=== PATIENT | male | born 1940 | race Caucasian/White ===

== ENCOUNTER 2020-01-28 09:13 | Inpatient (IN) | payer MEDICARE, OTHER, SELFPAY ==
[2020-01-28] VITALS (40 sets, daily range): BP systolic 119–190; BP diastolic 71–165; PULSE 80–173; RESP 14–34; TEMP 36.6–37.4; O2SAT 95–99
--- NOTE | 2020-01-28 09:00 | RT.EKG_ITS ---
APPROVED REPORT Exam: Resting ECG Patient Location: E HR:122 bpm ECG Measurements Heart Rate 122 AXIS HI 152 P 60 QRSd 92 QRS 77 QT 332 T -21 QTc 475 Conclusion Sinus tachycardia with irregular rate...V-rate 101-153, variation>10%
--- NOTE | 2020-01-28 09:30 | DI.CT_ITS ---
EXAM: CT HEAD CERVICAL SPINE WO CLINICAL HISTORY: unwitnessed fall TECHNIQUE: COMPARISON: CT CT CHEST/ABD/PEL W from 01/28/2020 FINDINGS: Noncontrast cranial CT was performed. Moderate generalized cerebral atrophy noted. Diffuse white ma tter decreased attenuation noted consistent with microvascular ischemic change. Right lacunar infarc t noted. No evidence of acute intracranial hemorrhage, mass effect, or midline shift. The orbital and tempora l bone structures appear intact. Visualized mastoid air cells and paranasal sinuses are clear. Noncontrast cervical spine CT was performed. There are moderate degenerative changes of the facet julio cesar ints and endplates. No evidence of acute cervical spine fracture or dislocation. Visualized lung apices are clear. Tracheolaryngeal structures appear intact. IMPRESSION: No evidence of acute intracranial injury. No evidence of acute cervical spine injury. RADIATION DOSE DELIVERED: 1,352.08mGy.cm Total DLP
--- NOTE | 2020-01-28 09:43 | W.ED.GENAD ---
Discharge Plan Disposition Patient Disposition: [facility] IN[facility]IENT Condition: Poor Discharge Details Chief Complaint: Trauma Clinical Impression: Dementia, Fall, Palliative care patient Admit Date/Time: 01/28/20 12:47 Admit Provider: Charlie Guerrero Attending Provider: Charlie Guerrero Primary Care Provider: LesleeLocal ED Provider: Elise Snyder Discharge Data Discharge Date/Time-TO BE ENTERED AT DEPARTURE: 01/28/20 13:37 Medical Decision Making Patient is a confused 79-year-old male brought in via EMS after fall and subsequent seizure like episode. The fall was unwitnessed but does describe the subsequent episode that was 5 to 10 minutes after the initial fall. Shows the patient arching his back and convulsing there is a 62-year-old on pain prior to this. Per EMS, the patient had been fairly unresponsive but seem to clear since their time with the patient. Patient has been endorsing some discomfort in the right lower quadrant. He is not anticoagulated. Patient is unable to give me any past medical history secondary to his Alzheimer's. His exam is concerning for a small skin tear of the left elbow as well as the upper left back. He is moving the arm without any difficulty. Patient is collared. No evidence of head trauma. Lungs are clear. No evidence of respiratory distress. Abdomen significant for some right lower quadrant pain. No peritoneal findings. Pelvis is stable. Unable to perform neurologic exam secondary to patient's mental state. As I am unable to obtain accurate history, will move forward [facility] imaging. Patient given IV Ativan to help allow for imaging without large amount of movement. did give consent for medication. FINDINGS: Brain: Moderate degree deep cortical atrophy. There is mild periventricular low-attenuation consistent with small vessel ischemic change. Cerebral ventricles: There is compensatory enlargement the ventricular system due to atrophy. Bones/joints: Unremarkable. No acute fracture. Paranasal sinuses: Visualized sinuses are unremarkable. No fluid levels. Mastoid air cells: Visualized mastoid air cells are well aerated. Soft tissues: Unremarkable. Other findings: Images are degraded by motion artifact. IMPRESSION: No evidence of acute intracranial injury. FINDINGS: Lungs: Unremarkable. No consolidation. No masses. Pleural space: Unremarkable. No pneumothorax. No pleural effusion. Heart: There is calcification of the coronary arteries. The heart is not enlarged. Aorta: Calcifications are present in the aorta but there is no evidence of thoracic aortic aneurysm. Lymph nodes: Unremarkable. No enlarged lymph nodes. Liver: Incidentally noted are multiple calcified stones in the gallbladder and multiple benign liver cysts. Bones/joints: Degenerative changes are present in the spine with sclerosis and osteophyte formation. No fractures are seen in the chest. Soft tissues: Unremarkable. IMPRESSION: He has no acute abnormalities are seen in the chest. Labs reviewed. No leukocytosis. Stable H&H. Potassium slightly low at 3.4. Labs otherwise significant abnormality. Troponin is less than 0.05. CK is within normal limits. Patient does have a mild amount of blood in the urine but this was straight cathed and strep and traumatic. Spoke with the at length regarding goals of care. Patient continues to be tachycardic. He does have fluids running. Patient does have advanced directives on file. reports that he has been declining fairly rapidly in recent months. She reports that they were supposed to go to [place] in the next few months which is unclear if there can be able to do so. At this point, she is recognizing she is going to need help at home as he is falling more frequently and is increasingly confused. He has had significant weight loss as he is even having difficulty identifying food needs a large amount of prompting to continue to have caloric or fluid intake. Care management evaluated the patient. I do feel that they would benefit from palliative care consult. Patient is very agitated and has fairly spastic movements. I am concerned about his and his safety if he is to be discharged home. Will consult hospitalist regarding inpatient admission with plan for evaluation and discussion with palliative care while here. Consulted with hospitalist who agrees to admission. HPI General Mode of arrival: EMS. Date/Time Provider Initiated Documentation: 01/28/20 09:30. Limitations to Documentation: altered mental status (alzheimers, at baseline per family). Information obtained by: family (), EMS and RN notes reviewed. HPI Narrative: Patient is a 79-year-old male with advanced Alzheimer's, brought in via EMS after concern for seizure. Patient's is at bedside. She reports that this morning the patient suffered an unwitnessed fall. She reports the patient does fall fairly frequently. She states that initially, he had been endorsing some pain on his buttock and had an abrasion to the left elbow which she bandaged. She states that this seems to be fairly baseline fall initially but approximately 5 to 10 minutes after the initial fall she heard the patient yell out to find him on the floor once again unconscious, with back arched and convulsing. She reports that he was then unresponsive for approximately half an hour after this. He is currently back to his baseline. She is did not believe that he struck his head. Related Data Home Medications Medication Instructions Recorded Confirmed donepezil [Aricept] 5 mg PO QHS 01/28/20 01/28/20 memantine [Namenda] 10 mg PO QPM 01/28/20 01/28/20 Allergies Allergy/AdvReac Type Severity Reaction Status Date / Time No Known Allergies Allergy Unverified 01/28/20 09:44 General Stated Complaint: Trauma MURRAY: 2 Review of Systems Unobtainable due to mental status [facility] Medical History HTN (hypertension) Hyperlipidemia Social History Smoking/Tobacco Use Status: Former Tobacco Use Alcohol Intake: never Drug use: Never Substance use type: does not use Do you feel safe at home: Yes Do you feel safe in your relationship?: Yes Exam Const General: uncooperative, in distress mild, anxious and ill appearing chronically Nutritional Appearance: average body habitus and well nourished Orientation: alert, awake, oriented to person (able to state his first name only), not oriented to place, not oriented to time and confused [facility] Head: normal to inspection, no palpable skull fracture, normocephalic and atraumatic Ears: hearing grossly normal bilaterally, external ears normal and TM's normal bilaterally General nose exam: external nose normal Mouth: oral mucosae normal, lip normal and tongue normal Throat: other (unable to evaluate, patient does not want to open mouth) Eyes General: appearance normal, both eyes and all related structures Alignment and Position: alignment normal Periorbital: periorbital findings normal Eyelids: eyelids normal Conjunctivae: conjunctivae normal Pupils: PERRL EOM: EOM intact bilaterally Neck Neck: normal visual inspection, no lymphadenopathy, trachea midline and supple Chest Chest: normal inspection of the chest, normal palpation of entire chest wall, no crepitus and no localized rib tenderness Resp Effort & Inspection: normal respiratory effort, able to speak in complete sentences and no respiratory distress Auscultation: clear to auscultation bilaterally, no rales, no rhonchi and no wheezes Cardio Rate: regular rate Rhythm: regular rhythm Heart Sounds: S1 normal and S2 normal GI Inspection: normal to inspection, no abdominal wall ecchymosis, no edema and non-distended Palpation: soft, no hepatosplenomegaly, not firm, no guarding, no pulsatile masses, not rigid and tender in the RLQ; with no rebound tenderness Auscultation: normal bowel sounds Back/Spine/Pelvis Back: no CVA tenderness Cervical Spine: normal cervical lordosis and cervical ROM normal Thoracic/Lumbar Spine: thoracic and lumbar spine normal to inspection, thoraco-lumbar ROM normal, No thoraco-lumbar ROM limited, No thoraco-lumbar spasm and No thoracic spinal tenderness Pelvis: no pain with anterior-posterior compression and no pain with lateral compression Skin Trauma: abrasion (left elbow and upper left back) Neuro General: patient alert, patient awake, not oriented x3, gait abnormal (not assessed), tone normal and moves all extremities Cranial Nerves: PERRL, EOM intact bilaterally, facial strength normal, able to rotate head bilaterally and able to elevate shoulders bilaterally Cognition: abnormal cognition Speech: speech normal (reported to be baseline for patient) Motor: muscle tone normal throughout Sensory Exam: no sensory deficits noted (unable to assess secondeary to cognition) Extrem General: normal to inspection, full ROM, capillary refill normal, no pedal edema and no calf tenderness Psych Appearance: grossly normal Course Vital Signs Vital signs: Vital Signs Temperature 36.6 C 01/28/20 09:17 Pulse 126 H 01/28/20 09:17 Respiratory Rate 34 H 01/28/20 09:17 Blood Pressure 146/94 H 01/28/20 09:17 Pulse Oximetry 98 01/28/20 09:17 Temperature 36.6 C 01/28/20 09:17 Temperature Source Temporal Artery Scan 01/28/20 09:17 Pulse 126 H 01/28/20 09:17 Respiratory Rate 34 H 01/28/20 09:17 Blood Pressure 146/94 H 01/28/20 09:17 Blood Pressure Position Supine 01/28/20 09:17 Pulse Oximetry 98 01/28/20 09:17 Oxygen Delivery Method Room Air 01/28/20 09:17 Oxygen Flow Rate 0 01/28/20 09:17
[2020-01-28] MEDS: LORazepam 2 MG/ML VIAL 0.5 MG IVP (09:45)
[2020-01-28] MEDS: Normal Saline Flush 10 ML SYR IVP (09:45)
[2020-01-28 09:56] LABS: Bilirubin Negative (Negative); Blood Moderate (Negative); Clarity Clear (Clear); Glucose Negative (Negative); Ketones Negative (Negative); Leukocyte Esterase Negative (Negative); Nitrite Negative (Negative); Specific Gravity 1.025 (1.005-1.025); Urobilinogen 0.2 EU/dL (Up TO 0.2)
[2020-01-28 09:57] LABS: Abs Immature Grans 0.02 10^3/uL (0.0-0.06); Absolute Basophil Count 0.04 10^3/uL (0.0-0.2); Absolute Eosinophil Count 0.21 10^3/uL (0.0-0.7); Absolute Lymphocyte Count 1.39 10^3/uL (1.2-3.4); Absolute Monocyte Count 0.46 10^3/uL (0.1-0.8); Absolute Neutrophil Count 4.27 10^3/uL (1.2-6.7); Basophils % 0.6; Eosinophils % 3.3; HCT 43.1 % (40.0-50.0); HGB 14.2 g/dL (13.5-17.5); Immature Grans % 0.3; Lymphocytes % 21.8; MCH 30.7 pg (27.0-33.0); MCHC 32.9 % (32.0-36.0); MCV 93.3 fL (80-95); MPV 10.4 fL (8.0-11.0); Monocytes % 7.2; Neutrophils % 66.8; Nucleated RBC 0 %; Platelet Count 214 10^3/uL (130-400); RBC 4.62 10^6/uL (4.36-5.78); RDW 12.3 % (11.8-14.1); RDW-SD 42.4 fL; WBC 6.39 10^3/uL (4.4-10.8)
[2020-01-28] MEDS: LORazepam 2 MG/ML VIAL 1 MG IVP (10:00)
[2020-01-28 10:08] LABS: Bacteria Moderate HPF (Negative); C & S Indicated? No; Casts Negative LPF (Negative); Crystals Negative HPF (Negative); Epithelial Cells Negative HPF (Negative); Mucus Negative (Negative); Other Cells Few Renal (Negative); RBC >50 HPF (0-2)
[2020-01-28 10:11] LABS: PTT Activated 23.2 sec (21.0-31.4); Prothrombin Time 10.2 sec (9.3-11.0)
[2020-01-28 10:13] LABS: ALT 22 U/L (16-63); AST 17 U/L (15-37); Albumin 3.7 g/dL (3.4-5.0); Alkaline Phosphatase 84 U/L (46-116); Anion Gap 8.7 mmol/L (3-11); BUN 18 mg/dL (7-18); Bilirubin, Total 0.4 mg/dL (0.2-1.0); CO2 26.3 mmol/L (21.0-32.0); CREATININE 0.95 mg/dL (0.70-1.30); Calcium 8.8 mg/dL (8.5-10.1); Chloride 107 mmol/L (98-107); Glucose 122 mg/dL (74-106); Magnesium 2.3 mg/dL (1.8-2.4); Potassium 3.4 mmol/L (3.5-5.1); Sodium 142 mmol/L (136-145); Total Protein 7.7 g/dL (6.4-8.2); Troponin I < 0.05 ng/mL (<0.06)
[2020-01-28] MEDS: Normal Saline - Diluent 50 ML VIAL IV (10:25)
[2020-01-28] MEDS: Omnipaque 350 MG/ML 100 ML BTL IJ (10:25)
--- NOTE | 2020-01-28 10:50 | DI.CT_ITS ---
EXAM: CT CHEST/ABD/PEL W TECHNIQUE: CT examination of the chest, abdomen, and pelvis was performed with bolus infusion of 100 cc of Omnipaque 350. COMPARISON: No exams were available for comparison FINDINGS: There is no evidence of a thoracic vascular injury. The lungs are clear. No pneumothorax or pleural effusion. No mediastinal hematoma. No adenopathy in the chest. Tracheobronchial tree appears intact. The liver, spleen, and pancreas appear normal. Note note is made of cholelithiasis. No biliary dila tation. Adrenals and kidneys are unremarkable. No evidence of urinary tract injury or obstruction. No abdominal or pelvic vascular injury seen. Incidental hepatic cysts noted. No abdominal or pelvic adenopathy. No significant abdominal wall hernia or hematoma. No evidence of bowel injury. No fracture identified in the region surveyed. IMPRESSION: No evidence of acute injury of the chest, abdomen, or pelvis. RADIATION DOSE DELIVERED: Total DLP Total DLP DATA REPOSITORY: All CT scans at this facility are submitted to the National Radiology Data Registry (NRDR) Dose Index Registry (DIR) with the [employer] (ACR). RADIATION OPTIMIZATION: All CT scans at this facility use at least one of these dose optimization te chniques: automated exposure control; mA and/or kV adjustment per patient size (includes targeted exa ms where dose is matched to clinical indication); or iterative reconstruction.
[2020-01-28] MEDS: Normal Saline 1,000 ML 150 ML IV ×2 (10:54→20:27)
--- NOTE | 2020-01-28 11:24 | DI.VRAD_ITS ---
PROCEDURE INFORMATION: Exam: CT Abdomen And Pelvis With Contrast Exam date and time: 01/28/2020 9:49 AM Age: 79 years old Clinical indication: Injury or trauma; Fall; Generalized; Blunt trauma (contusions or hematomas); Injury date: 01/28/20 TECHNIQUE: Imaging protocol: Computed tomography of the abdomen and pelvis with intravenous contrast. Radiation optimization: All CT scans at this facility use at least one of these dose optimization techniques: automated exposure control; mA and/or kV adjustment per patient size (includes targeted exams where dose is matched to clinical indication); or iterative reconstruction. Contrast material: OMNIPAQUE 350; Contrast volume: 100 ml; Contrast route: INTRAVENOUS (IV); COMPARISON: No relevant prior studies available. FINDINGS: Liver: Multiple benign liver cysts are present measuring up to 3.8 cm in diameter. Gallbladder and bile ducts: Multiple stones are present in the gallbladder. There is no pericholecystic fluid. The bile ducts are normal. Pancreas: Normal. No ductal dilation. Spleen: Normal. No splenomegaly. Adrenals: Normal. No mass. Kidneys and ureters: Normal. No hydronephrosis. Stomach and bowel: There is sigmoid diverticulosis but no evidence of acute diverticulitis. There is no bowel obstruction or dilatation. Appendix: No evidence of appendicitis. Intraperitoneal space: Unremarkable. No free air. No significant fluid collection. Vasculature: There is calcification and atherosclerotic plaquing in the aorta there is no significant aneurysmal dilatation. Lymph nodes: Unremarkable. No enlarged lymph nodes. Urinary bladder: Unremarkable as visualized. Reproductive: Prostate is enlarged with calcifications. Bones/joints: Chronic degenerative changes are present in the lumbar spine and in the hip joints. No fractures are seen in the abdomen and pelvis. Soft tissues: Unremarkable. IMPRESSION: 1. No acute abnormality. 2. Cholelithiasis. Dictated and Authenticated by: Mikhail Pimentel MD. Ordering:SHARMAINE Olivares MD
--- NOTE | 2020-01-28 11:37 | DI.VRAD_ITS ---
PROCEDURE INFORMATION: Exam: CT Cervical Spine Without Contrast Exam date and time: 01/28/2020 9:49 AM Age: 79 years old Clinical indication: Injury or trauma; Fall; Blunt trauma (contusions or hematomas); Consciousness not specified; Injury date: 01/28/20 TECHNIQUE: Imaging protocol: Computed tomography images of the cervical spine without contrast. Radiation optimization: All CT scans at this facility use at least one of these dose optimization techniques: automated exposure control; mA and/or kV adjustment per patient size (includes targeted exams where dose is matched to clinical indication); or iterative reconstruction. COMPARISON: No relevant prior studies available. FINDINGS: Limitations: Motion of degrading the images. Vertebrae: Congenital nonfusion of the posterior arch of C1. C2-C3 prominent anterior osteophyte formation C2-C3: No significant disc protrusion. No severe spinal canal stenosis. No significant neural foraminal narrowing. C3-C4: C3-C4 posterior osteophyte formation. There is foraminal narrowing inferiorly on the due to uncovertebral osteophyte formation and hypertrophic changes C4-C5: C4-C5 posterior osteophyte extending into the canal. There is bilateral uncovertebral osteophyte formation with mild inferior neural foraminal narrowing. C5-C6: There is disc Space narrowing with prominent anterior posterior osteophyte formation. There is exuberant uncovertebral hypertrophic changes resulting in bilateral inferior neural foraminal narrowing. C6-C7: C6-C7 degenerative changes marked uncovertebral hypertrophic changes anterior posterior osteophyte formation resulting in bilateral inferior neural foraminal narrowing. C7-T1: No significant disc protrusion. No severe spinal canal stenosis. No significant neural foraminal narrowing. Other bones/joints: Osteopenia. Soft tissues: Unremarkable. Lungs: Lung apices are normal. IMPRESSION: Marked degenerative changes with neural foraminal narrowing as described above. No evidence of acute fracture. Dictated and Authenticated by: Chandni Ramachandran MD. Ordering:SHARMAINE Olivares MD
[2020-01-28 11:42] LABS: Creatine Kinase 239 U/L (39-308)
[2020-01-28] MEDS: Lidocaine 2% Jelly 6 ML SYR (13:23)
--- NOTE | 2020-01-28 14:06 | HPE_ITS ---
Date of service: 01/28/20 Time of Service: 14:06 Assessment and Plan Assessment and plan (1) Dementia: Start date: 01/28/20 Start time: 14:17 Status: Chronic Assessment and plan: Dementia x 10 years, seen by provider in [place]. Progressively worse over last 3-6 months with aggression, agitation and falling. wants conservative measures while waiting for palliative care Will trial seroquel, Morphine for pain ativan for agitation Bowel medication for constipation Qualifiers: Dementia type: Alzheimer's disease Alzheimer's disease onset: early- onset Dementia behavioral disturbance: with behavioral disturbance Qualified Code(s): G30.0 - Alzheimer's disease with early onset; F02.81 - Dementia in other diseases classified elsewhere with behavioral disturbance (2) Fall: Start date: 01/28/20 Start time: 14:19 Status: Acute Assessment and plan: Fall this morning, unwitnessed, when found patient he was unresponsive. When he came through he was baseline with agitation, pain to LLQ, small abrasion to left upper scapula. Hold DVT prophylaxis due to agitation and high fall risk, As above Above case discussed with Dr. Guerrero who is agreeable. Qualifiers: Encounter type: initial encounter Qualified Code(s): W19.XXXA - Unspecified fall, initial encounter History of Present Illness History of Present Illness Chief Complaint: Dementia, agitation, fall Narrative: 79 y.o male with Dementia x past 10 years presents to [facility] ED after sustaining a fall, becoming unresponsive for approx 30 mins. Labs in the ED unremarkable except potassium 3.4, did not want further testing or procedures she wants conservative measures with palliative consult. Per over the summer he has gotten progressively more agitated, wt loss of about 50 pounds, decrease in po intake. He is confused and wants to get up and pee when being evaluated. He is being admitted to m/s for IV hydration, he is crying out and grimacing when pushing on LLQ, IV hydration ordered, morphine for pain, ativan for agitation, will trial seroquel for night time agitation and palliative has been consulted. He will need a sitter, he likes to get up on his own and is not steady. Review of Systems All systems reviewed & are unremarkable except as noted in HPI and below [facility] Medical History (Updated 01/28/20 @ 14:17 by Mishel Reyez NP) HTN (hypertension) Hyperlipidemia Social History Smoking/Tobacco Use Status: Former Tobacco Use Alcohol Intake: never Drug use: Never Substance use type: does not use Do you feel safe at home: Yes Do you feel safe in your relationship?: Yes Meds Home Medications and Allergies Home Medications Medication Instructions Recorded Confirmed Type donepezil [Aricept] 5 mg PO QHS 01/28/20 01/28/20 History memantine [Namenda] 10 mg PO QPM 01/28/20 01/28/20 History Allergies Allergy/AdvReac Type Severity Reaction Status Date / Time No Known Allergies Allergy Unverified 01/28/20 09:44 Exam Narrative Exam Narrative: Elderly confused male, fixated on urinating. Does not follow commands, rigid and still when trying to sit up. No edema. LSC, RRR no ectopic beats. Dry scaly skin, pain to LLQ with palpation, BS hypoactive. no edema, clubbing or cyanosis to bilateral lower extremities. Results Labs Result diagrams: 01/28/20 09:20 01/28/20 09:20 Labs: Laboratory Results - last 24 hr 01/28/20 01/28/20 01/28/20 09:20 09:20 09:20 WBC 6.39 RBC 4.62 Hgb 14.2 Hct 43.1 MCV 93.3 MCH 30.7 MCHC 32.9 RDW 12.3 Plt Count 214 MPV 10.4 Immature Gran % 0.3 Neutrophils % 66.8 Lymphocytes % 21.8 Monocytes % 7.2 Eosinophils % 3.3 Basophils % 0.6 Nucleated RBC % 0 Absolute Neutrophils 4.27 Absolute Lymphocytes 1.39 Absolute Monocytes 0.46 Absolute Eosinophils 0.21 Absolute Basophils 0.04 PT 10.2 INR 1.0 APTT 23.2 Sodium 142 Potassium 3.4 L Chloride 107 Carbon Dioxide 26.3 Anion Gap 8.7 BUN 18 Creatinine 0.95 Estimated GFR/1.73 m2 >= 60.00 Glucose 122 H Calcium 8.8 Magnesium 2.3 Total Bilirubin 0.4 AST 17 ALT 22 Alkaline Phosphatase 84 Creatine Kinase Troponin I < 0.05 Total Protein 7.7 Albumin 3.7 Urine Color Urine Clarity Urine pH Ur Specific [place] Urine Protein Urine Ketones Urine Blood Urine Nitrite Urine Bilirubin Urine Urobilinogen Ur Leukocyte Esterase Urine RBC Urine WBC Ur Epithelial Cells Urine Crystals Urine Bacteria Urine Casts Urine Mucus Urine Other Ur Culture Indicated? Urine Glucose 01/28/20 01/28/20 09:20 09:50 WBC RBC Hgb Hct MCV MCH MCHC RDW Plt Count MPV Immature Gran % Neutrophils % Lymphocytes % Monocytes % Eosinophils % Basophils % Nucleated RBC % Absolute Neutrophils Absolute Lymphocytes Absolute Monocytes Absolute Eosinophils Absolute Basophils PT INR APTT Sodium Potassium Chloride Carbon Dioxide Anion Gap BUN Creatinine Estimated GFR/1.73 m2 Glucose Calcium Magnesium Total Bilirubin AST ALT Alkaline Phosphatase Creatine Kinase 239 Troponin I Total Protein Albumin Urine Color Yellow Urine Clarity Clear Urine pH 7.0 Ur Specific [place] 1.025 Urine Protein Negative Urine Ketones Negative Urine Blood Moderate H Urine Nitrite Negative Urine Bilirubin Negative Urine Urobilinogen 0.2 Ur Leukocyte Esterase Negative Urine RBC >50 H Urine WBC 3-5 Ur Epithelial Cells Negative Urine Crystals Negative Urine Bacteria Moderate Urine Casts Negative Urine Mucus Negative Urine Other Few renal Ur Culture Indicated? No Urine Glucose Negative Last Vital Signs Temp 36.6 C 01/28/20 09:17 Pulse 117 H 01/28/20 13:01 Resp 24 01/28/20 13:30 BP 130/104 H 01/28/20 13:16 Pulse Ox 98 01/28/20 13:30 COVID-19 Screening Have you,or household,traveled outside [place] in last 14 days?: No Had IN PERSON contact w/suspected or confirmed C-19 person: No
[2020-01-28] MEDS: MORPHine 2 MG/ML SYR IVP (14:21)
[2020-01-28] MEDS: Bisacodyl 10 MG SUPP PR (14:22)
--- NOTE | 2020-01-28 15:34 | INITIAL_ITS ---
- If Service Date Differs Date of service: 01/28/20 Time of Service: 15:34 Care Management Initial Assess REASON FOR HOSPITALIZATION:: Dementia, agitation, fall PAST MEDICAL HISTORY/PAST SURGICAL HISTORY:: Medical History: Dementia, fall at home, HTN, Hyperlipidemia PREVIOUS FUNCTIONAL STATUS/SOCIAL/FAMILY SUPPORTS:: Steffen lives in [place] with his , Adrianna. They spend half of the year in [place], near [place]. Adrianna's family lives in [place], nearby. They have been for 37 years. Steffen has advanced dementia, and Adrianna is his sole caregiver. He is dependent on her for his ADL's. CURRENT FUNCTIONAL STATUS:: Steffen was in bed, moving his arms and legs around eratically during the conversation between CM and his , Adrianna. Steffen was unable to communicate due to his dementia. Adrianna stated that they are planning to return to [place], where they have more support and where Steffen's primary MD is located. She reported that she understands that Steffen's dementia is worsening, and she is ready to consider Hospice. CM explained that if he is admitted to Hospice in [place], it can be transferred to [place] when they are ready to return. A Palliative consult was placed. CM will continue to follow. ADVANCE DIRECTIVES:: On file, Adrianna listed as agent. Has patient been provided with info about the portal/API?: No Did the patient sign up for the portal?: No CODE STATUS:: DNR/DNI INSURANCE COVERAGE / FINANCIAL ISSUES:: MCR/ for life CURRENT HOME/COMMUNITY SERVICES/EQUIPMENT:: No current services at this time. PRIMARY CARE PHYSICIAN:: No local PCP POTENTIAL DISCHARGE NEEDS:: Palliative care vs Hospice admission, potential equipment needs. PATIENT/FAMILY EDUCATION NEEDS:: Review discharge instructions, discuss expectations of hospice care including goals of care. ANTICIPATED BARRIERS TO DISCHARGE:: None identified at this time. TRANSPORTATION:: via private vehicle by his PLAN:: Steffen and his , Adrianna will meet with Palliative care/Hospice to determine goals of care and to help with discharge planning. CM will support Steffen and his family, and will help with coordination in order to transition home smoothly. CM will continue to follow.
[2020-01-28] MEDS: Memantine 5 MG TAB 10 MG PO (20:27)
[2020-01-28] MEDS: Donepezil 5 MG TAB PO (21:55)
[2020-01-28] MEDS: QUEtiapine 25 MG TAB PO (21:55)
[2020-01-29] MEDS: Normal Saline Flush 10 ML SYR IVP ×2 (03:27→03:30)
[2020-01-29] MEDS: MORPHine 2 MG/ML SYR IVP ×3 (03:27→13:34)
[2020-01-29] MEDS: Normal Saline 1,000 ML 100 ML IV ×2 (03:29→11:10)
[2020-01-29 07:34] VITALS: BP 169/87; RESP 18; TEMP 36; O2SAT 95
--- NOTE | 2020-01-29 07:56 | W.PALLCONSUL ---
Date of service: 01/29/20 Time of Service: 07:56 History of Present Illness History of Present Illness Chief Complaint: Dementia, numerous falls Narrative: Per Admit H and P (pt could not give me a history) istory of Present Illness History of Present Illness Chief Complaint: Dementia, agitation, fall Narrative: 79 y.o male with Dementia x past 10 years presents to [facility] ED after sustaining a fall, becoming unresponsive for approx 30 mins. Labs in the ED unremarkable except potassium 3.4, did not want further testing or procedures she wants conservative measures with palliative consult. Per over the summer he has gotten progressively more agitated, wt loss of about 50 pounds, decrease in po intake. He is confused and wants to get up and pee when being evaluated. He is being admitted to m/s for IV hydration, he is crying out and grimacing when pushing on LLQ, IV hydration ordered, morphine for pain, ativan for agitation, will trial seroquel for night time agitation and palliative has been consulted. He will need a sitter, he likes to get up on his own and is not steady. Steffen has been fairly combative per nursing. He does not like doing what he does not like to do. When I came in he was resting somewhat comfortably may be at times a little fitfully. I spoke with his Adrianna who states that until a few days ago he was going up and down stairs and could walk around the house. He has been on Namenda and Aricept for years. Somewhere along the line the Namenda got dropped down to once daily and the Aricept was decreased from 10 mg to 5 mg. She does not really know if they are helping at all and feels that he changes from day-to-day so it is hard to tell. She is hoping that he does not have to go into an institution but realizes that perhaps where he is going Additionally his also states that they have an advanced directive but no COLST form Consults Consult date: 01/29/20 Requesting physician: Anita Rothman Assessment and Plan Assessment and plan (1) Dementia: Status: Chronic Qualifiers: Dementia type: Alzheimer's disease Alzheimer's disease onset: early-onset Dementia behavioral disturbance: with behavioral disturbance Qualified Code(s): G30.0 - Alzheimer's disease with early onset; F02.81 - Dementia in other diseases classified elsewhere with behavioral disturbance (2) Fall: Status: Acute Qualifiers: Encounter type: initial encounter Qualified Code(s): W19.XXXA - Unspecified fall, initial encounter (3) Palliative care patient: Status: Acute Assessment and plan: 79-year-old male with Alzheimer's disease. Per he is starting to get more agitated and fall more. He does have a sitter in place. He was not to interactive with me initially but after I left and then came back in the room he was more interactive. I spoke with Adrianna and she will come this evening so that we can complete a CO LST form and think about next steps. She still is in hopes of returning to [place] this year. They do have a neurologist in [place]. Review of Systems Narrative: Patient could not give me a review of systems [facility] Medical History (Updated 01/29/20 @ 09:25 by Hallie Soares MD, [place]) HTN (hypertension) Hyperlipidemia Social History Smoking/Tobacco Use Status: Former Tobacco Use Alcohol Intake: never Drug use: Never Substance use type: does not use Do you feel safe at home: Yes Do you feel safe in your relationship?: Yes Exam Narrative Exam Narrative: Lying in bed somnolent when I came in but woke up after I left. The nurse and I did bring him up further in the bed. He did not seem to grimace or mind this when we did this. His heart was rate controlled. His lungs not a lot of cooperation could not really tell much from his lung exam. Abdomen there were bowel sounds and no grimacing when I examined him His legs were very very dry and he has excellent looking feet Results Last Vital Signs Temp 96.8 F L 01/29/20 07:34 Pulse 80 01/28/20 23:20 Resp 18 01/29/20 07:34 BP 169/87 H 01/29/20 07:34 Pulse Ox 95 01/29/20 07:34 Labs Result diagrams: 01/28/20 09:20 01/28/20 09:20 Labs: Laboratory Results - last 24 hr 01/28/20 01/28/20 01/28/20 09:20 09:20 09:20 WBC 6.39 RBC 4.62 Hgb 14.2 Hct 43.1 MCV 93.3 MCH 30.7 MCHC 32.9 RDW 12.3 Plt Count 214 MPV 10.4 Immature Gran % 0.3 Neutrophils % 66.8 Lymphocytes % 21.8 Monocytes % 7.2 Eosinophils % 3.3 Basophils % 0.6 Nucleated RBC % 0 Absolute Neutrophils 4.27 Absolute Lymphocytes 1.39 Absolute Monocytes 0.46 Absolute Eosinophils 0.21 Absolute Basophils 0.04 PT 10.2 INR 1.0 APTT 23.2 Sodium 142 Potassium 3.4 L Chloride 107 Carbon Dioxide 26.3 Anion Gap 8.7 BUN 18 Creatinine 0.95 Estimated GFR/1.73 m2 >= 60.00 Glucose 122 H Calcium 8.8 Magnesium 2.3 Total Bilirubin 0.4 AST 17 ALT 22 Alkaline Phosphatase 84 Creatine Kinase Troponin I < 0.05 Total Protein 7.7 Albumin 3.7 Urine Color Urine Clarity Urine pH Ur Specific [place] Urine Protein Urine Ketones Urine Blood Urine Nitrite Urine Bilirubin Urine Urobilinogen Ur Leukocyte Esterase Urine RBC Urine WBC Ur Epithelial Cells Urine Crystals Urine Bacteria Urine Casts Urine Mucus Urine Other Ur Culture Indicated? Urine Glucose 01/28/20 01/28/20 01/28/20 09:20 09:50 12:30 WBC RBC Hgb Hct MCV MCH MCHC RDW Plt Count MPV Immature Gran % Neutrophils % Lymphocytes % Monocytes % Eosinophils % Basophils % Nucleated RBC % Absolute Neutrophils Absolute Lymphocytes Absolute Monocytes Absolute Eosinophils Absolute Basophils PT INR APTT Sodium Potassium Chloride Carbon Dioxide Anion Gap BUN Creatinine Estimated GFR/1.73 m2 Glucose Calcium Magnesium Total Bilirubin AST ALT Alkaline Phosphatase Creatine Kinase 239 Troponin I Cancelled Total Protein Albumin Urine Color Yellow Urine Clarity Clear Urine pH 7.0 Ur Specific [place] 1.025 Urine Protein Negative Urine Ketones Negative Urine Blood Moderate H Urine Nitrite Negative Urine Bilirubin Negative Urine Urobilinogen 0.2 Ur Leukocyte Esterase Negative Urine RBC >50 H Urine WBC 3-5 Ur Epithelial Cells Negative Urine Crystals Negative Urine Bacteria Moderate Urine Casts Negative Urine Mucus Negative Urine Other Few renal Ur Culture Indicated? No Urine Glucose Negative
[2020-01-29 08:39] VITALS: O2SAT 95
--- NOTE | 2020-01-29 13:17 | W.PM.PROGNOT ---
Date of Service Date of service: 01/29/20 Time of Service: 13:18 Assessment and Plan Assessment and plan (1) Dementia: Start date: 01/29/20 Start time: 13:22 Status: Chronic Assessment and plan: Dementia x 10 years, seen by provider in [place]. Progressively worse over last 3-6 months with aggression, agitation and falling. wants conservative measures while waiting for palliative care He appeared to do well on seroquel last night for sleep. Will continue Morphine for pain, abdominal pain with palpation, could be contusion from fall, no obvious signs of trauma ativan for agitation Bowel medication for constipation Palliative to meet with patient today. Qualifiers: Dementia type: Alzheimer's disease Alzheimer's disease onset: early-onset Dementia behavioral disturbance: with behavioral disturbance Qualified Code(s): G30.0 - Alzheimer's disease with early onset; F02.81 - Dementia in other diseases classified elsewhere with behavioral disturbance (2) Fall: Start date: 01/29/20 Start time: 13:23 Status: Acute Assessment and plan: unwitnessed fall prior to admission, when found patient he was unresponsive. When he came through he was baseline with agitation, pain to LLQ, small abrasion to left upper scapula. Hold DVT prophylaxis due to agitation and high fall risk, As above Spoke with about hospice. Will wait for palliative to have further discussion Above case discussed with Dr. Guerrero who is agreeable. Qualifiers: Encounter type: initial encounter Qualified Code(s): W19.XXXA - Unspecified fall, initial encounter Subjective Subjective Patient reports: other Interval history since last seen: Given dose of seroquel last night, slept well. less agitation today. Waiting for palliative care. Spoke with about patients declining mental status due to dementia. She is considering hospice. Will defer to Palliative for further conversation regarding goals of care. Exam Narrative Exam Narrative: Elderly confused male, sitting up in chair with by his side; fixated on urinating. Does not follow commands, rigid and still when trying to sit up. No edema. LSC, RRR no ectopic beats. Dry scaly skin, pain to LLQ with palpation, BS hypoactive. no edema, clubbing or cyanosis to bilateral lower extremities. Objective Last Vital Signs Temp 36.0 C L 01/29/20 07:34 Pulse 80 01/28/20 23:20 Resp 18 10/26/20 07:34 BP 169/87 H 01/29/20 07:34 Pulse Ox 95 01/29/20 08:39 Laboratory Results - last 24 hr 01/28/20 12:30 Troponin I Cancelled
[2020-01-29 14:36] LABS: COVID-19 RT-PCR UVMMC Result Negative (Negative)
--- NOTE | 2020-01-29 14:54 | IN_ITS ---
Date of service: 01/30/20 Time of Service: 14:54 PT Notes Visit Reasons: DEMENTIA, AGITATION, FALL WITH UNRESPONSIVENESS Physical Therapy Inpatient Initial Evaluation Date: 01/30/2020 Referring Doctor: Mishel Reyez NP PT Orders: PT CONSULT: Eval/Treat Precautions: Fall. Standard. Activity as tolerated. Impaired safety awareness. Patient Profile/Admitting Diagnosis: Steffen is a 79-year old male with dementia x 10 years who presented to the ED with chief complaints of confusion, agitation, fall. is considering hospice versus palliative care at home. PMHX: Medical History (Updated 01/28/20 @ 14:17 by Mishel Reyez NP) HTN (hypertension) Hyperlipidemia Social History/Home Situation: Lives with in a private home with 4 steps to enter. They have spent katz in [place] and spends the rest of the year here in [place]. Independent with ambulation inside the home without an assistive device. Equipment Owned/DME: No assistive devices Subjective: I am awake. That is a good walk. Per , the goal is to be able to walk at least 15 feet to cover the area from bedside and toilet. Objective: General Observation: Supine in bed. IV access in L UE. Mental Status: Oriented only to person. Per , her has previously asked her if she saw his . Pain: None reported. No non-verbal expression of pain noted during ambulation activity. ROM: Right Upper Extremity: Shoulder Flexion WFL. Shoulder abduction WFL. Elbow flexion WFL. Wrist flexion WFL. Opening and closing of hand WFL. Left Upper Extremity: Shoulder Flexion WFL. Shoulder abduction WFL. Elbow flexion WFL. Wrist flexion WFL. Opening and closing of hand WFL. Right Lower Extremity: Hip flexion WFL. Hip abduction WFL. Knee flexion WFL. Ankle dorsiflexion WFL. Ankle plantarflexion WFL. Left Lower Extremity: Hip flexion WFL. Hip abduction WFL. Knee flexion WFL. Ankle dorsiflexion WFL. Ankle plantarflexion WFL. Strength: Right Upper Extremity: Grossly 4-/5 Left Upper Extremity: Grossly 4-/5 Right Lower Extremity: Grossly 4-/5 Left Lower Extremity:Grossly 4-/5 Bed Mobility/Transfers: Sit to supine minimal assist with HOB at 30 degrees Sit to stand minimal assist of 2 Stand to sit minimal assist of 2 Bed to chair minimal assist of 2 Chair to bed minimal assist of 2 Gait: No assistive device used during the assessment. With hand held assist of 2 patient tolreated 50 feet of level surface ambulation with FWB. Has a tendency to retropulse, trunk pushes back if B UE is not pushesd forward. Decreased dave. Requires moderate verbal cues ot open both eyes for directions. Balance: Static Sitting: Normal Dynamic Sitting: Good Static Standing: Poor Dynamic Standing: Poor Special Tests: Mobility Limitations Standardized Measure [facility] AM-PAC 6 clicks Basic Mobility Inpatient Short Form: Raw Score: 11 CMS Score: 73% deficit Informed Consent/Education: Patient instructed in purpose of PT consult and plan of care. Assessment: Steffen demdanutantrates functional mobility decline requiring the help of two people for all mobility ADL performance, generalized weakness, imapired balance, and increased risk for falls due to admitting diagnoses. Steffen is a 79-year old male with dementia x 10 years who presented to the ED with chief complaints of confusion, agitation, fall. is considering hospice versus palliative care at home. Patient presents with clinical signs and symptoms consistent with current/admitting diagnoses that have resulted to mobility limitations, gait instability, generalized weakness, and impairment of motor control as demonstrated by the following impairment level findings: 1. Decreased strength to B UE/LE major muscle groups 2. Impaired /standing balance 3. Impaired activity tolerance 4. Impaired safety awareness Impairments are contributing to the following functional limitations: 1. Dependent bed mobility skills 2. Increased dependence with transfers 3. Inability to safely ambulate without assistive device and physical assistance 4. Increase completion time for mobility ADL performance 5. Increased fall risk 6. Inability to negotiate steps alone safely Patient is assessed as a 27466 moderate complexity based on the following: History: 79-year-old male with impairment level findings, functional limitations, and past medical history as indicated above Examination: Demonstrable impairment in strength, balance, and mobility level with underlying impairments and functional limitations as documented above Presentation:Evolving Decision Makin moderate complexity Goals: Goals X1 week 1. Supine-Sit independent 2. Sit-Supine independent 3. Sit-Stand SBA 4. Stand-Sit SBA 5. Bed-Chair SBA 6. Chair-Bed SBA 7. SBA gait on level surface with use of least restrictive device for at least 300 feet without report of pain nor dyspnea 8. SBA stair negotiation while holding onto bilateral rails for at least 10 steps without report of pain nor dyspnea 9. Good static and dynamic standing balance/tolerance Plan of Care/Treatment Plan: 1-2x/day, 7 days/week x 1 week. Plan of care has been reviewed with the SECTION LABORER providing the service under Physical Therapy direction. Initiate Physical Therapy intervention for strengthening, bed mobility, transfers, gait, stairs, balance training, use of assistive device. DISCHARGE RECOMMENDATIONS: Patient will benefit from home health PT services in order to progress mobility level using least restrictive assistive ambulatory device, assess home safety, identify additional equipment needs, and establish a functional maintenance program that will increase ability of patient to remain at home. TREATMENT CODE/TIME: 77536 x 26 minutes beginning at 14:54 PM. Thank you for the opportunity to participate in the care of this patient. Tete Montgmoery PT, DPT, CLT [facility] [place], [place]
--- NOTE | 2020-01-29 15:10 | PDOC.CMPRO ---
- If Service Date Differs Date of service: 01/29/20 Time of Service: 15:10 Care Management Progress Note S/O: Steffen was resting comfortably when CM attempted to visit with him. His was not in the room at that time, but per RN, she had been in earlier. Dr. Soares from Palliative care met with him today, and called his . They will meet in Steffen's room again this afternoon to complete a COLST form and to discuss the next steps in his care. CM called Hospice to let them know of the possible admission. Adrianna would like to take him home as soon as she can, but she is realistic about the decline in his health. CM will continue to follow. A: Steffen is a 79 year old male admitted to [facility] on 01/28/20 with Dementia, agitation, fall. P: Anticipate Steffen will return home with his once medically cleared with palliative outpatient vs Hospice admission. Transportation to be determined by mobility at time of discharge. His Adrianna will meet with Palliative care today to make a plan for the next steps in his care. CM will continue to follow.
[2020-01-29 15:50] VITALS: BP 154/87; PULSE 57; RESP 19; TEMP 37.9; O2SAT 96
--- NOTE | 2020-01-29 20:00 | PCPN_ITS ---
Date of service: 01/29/20 Time of Service: 19:00 Assessment and Plan Assessment and plan (1) Dementia: Status: Chronic Qualifiers: Dementia type: Alzheimer's disease Alzheimer's disease onset: early- onset Dementia behavioral disturbance: with behavioral disturbance Qualified Code(s): G30.0 - Alzheimer's disease with early onset; F02.81 - Dementia in other diseases classified elsewhere with behavioral disturbance (2) Palliative care patient: Status: Acute Assessment and plan: We did complete his COLST form. He is DNR/DNI. His does not think that he should be transported unless they cannot meet his needs at home or if he is institutionalized at an institution. She still would want antibiotics to see if it could help to make him more comfortable. She would not want a feeding tube but would be okay with short-term IV fluids. Since signs this as his DPOA. We have a copy in the EMR. I gave them the original. Regarding hospice at this point he would be eligible for hospice. He needs help with all activities of daily living. His PPS score is 30% He is declining rapidly. He has Alzheimer's and vascular dementia. His fast score is 7C. I would recommend that he have a hospice consult. His is understanding that there are different goals with hospice as far as calling hospice first rather than 911 etc. Does become a little bit more sticky as Steffen and Adrianna generally go to [place] for 6 months of the year. Covid of course makes everything different but should they go to [place] he could be transferred from our hospice to one closer to their [place] home. I have spent more than 50% of time in counseling with this patient. Subjective Subjective Interval history since last seen: I saw Steffen this AM and spoke with his , Adrianna over the phone. We decided to meet this evening to complete a COLST form and determine goals of care. She states that at this time Steffen requires help with all activities of daily living. He requires assistance to walk. He sometimes will say meaningful words but uncertain if he actually understands what he is answering to. Almost all of his answers are yes. He is incontinent of urine but at this time not incontinent of stool. Overall Adrianna does feel safe, but he is getting more and more agitated and she can see the day where she cannot handle him. He falls often. He has been diagnosed with Alzheimer's by his [place] physician. He had high blood pressure in the past and therefore does have aspects of vascular dementia. She is concerned that he may have had another stroke recently. Staff states that he is a 2 person assist. Exam Narrative Exam Narrative: He is directable but needs constant cueing in order to eat. He is pleasant but does not say anything except for yes. I did not listen to his heart and lungs this evening. Palliative Performance Scale % Ambulation Activity and Evidence of Disease Self Care Intake Level of Consciousness 100 Full Normal activity, no evidence of disease Full Normal Full 90 Full Normal activity, some evidence of disease Full Normal Full 80 Full Normal activity with effort, some evidence of disease Full Normal or reduced Full 70 Reduced Unable to do normal work, some evidence of disease Full Normal or reduced Full 60 Reduced Unable to do hobby or some housework, significant disease Occasional assist necessary Normal or reduced Full or confusion 50 Mainly sit/lie Unable to do any work, extensive disease Considerable assistance required Normal or reduced Full or confusion 40 Mainly in bed Unable to do any work, extensive disease Mainly assistance Normal or reduced Full, drowsy, or confusion 30 Totally bed bound Unable to do any work, extensive disease Total care Reduced Full, drowsy, or confusion 20 Totally bed bound Unable to do any work, extensive disease Total care Minimal sips Full, drowsy, or confusion 10 Totally bed bound Unable to do any work, extensive disease Total care Mouth care only Drowsy or coma 0 - - - - Patient Score: 30% Functional Assessment Scale (FAST) 1 No difficulty either subjectively or objectively 2 Complains of forgetting location of objects. Subjective work difficulties 3 Decreased job functioning evident to co-workers. Difficulty in traveling to new locations. Decreased organizational capacity* 4 Decreased ability to perform complex task, (e.g., planning dinner for guests, handling personal finances, such as forgetting to pay bills, etc) 5 Requires assistance in choosing proper clothing to wear for the day, season, or occasion, (e.g., pt may wear the same clothing repeatedly unless supervised*) 6 Occasionally or more frequently over the past weeks for the following*: A) Improperly putting on clothes without assistance or cueing B) Unable to bathe properly (not able to choose proper water temp) C) Inability to handle mechanics of toileting (e.g., forget to flush the toilet, does not wipe properly or properly dispose of toilet tissue) D) Urinary Incontinence E) Fecal Incontinence 7 A) Ability to speak limited to approximately < 6 intelligible different words in the course of an average day or in the course of an intensive interview. B) Speech ability is limited to the use of a single intelligible word in an average day or in the course of an intensive interview C) Ambulatory ability is lost (cannot walk without personal assistance) D) Cannot sit up without assistance (e.g., the individual will fall over if there are not lateral rests [arms] on the chair) E) Loss of ability to smile. F) Loss of ability to hold up head independently *Scored primarily on information obtained from a knowledgeable informant. Patient Score:7c Objective Last Vital Signs Temp 100.2 F H 01/29/20 15:50 Pulse 57 L 01/29/20 15:50 Resp 19 01/29/20 15:50 BP 154/87 H 01/29/20 15:50 Pulse Ox 96 01/29/20 15:50 Laboratory Results - last 24 hr 01/28/20 13:05 COVID-19 PCR Negative Nasopharyn COVID-19 PCR Not Applicable Ref Test Perform Site [facility] lab
[2020-01-29] MEDS: QUEtiapine 25 MG TAB PO (21:01)
[2020-01-29] MEDS: Donepezil 5 MG TAB PO (21:01)
[2020-01-29] MEDS: Memantine 5 MG TAB 10 MG PO (21:01)
[2020-01-30 00:20] VITALS: BP 165/83; PULSE 69; RESP 20; TEMP 36.9; O2SAT 94
[2020-01-30] MEDS: MORPHine 2 MG/ML SYR IVP (00:39)
[2020-01-30] MEDS: Normal Saline Flush 10 ML SYR IVP ×3 (00:40→12:29)
[2020-01-30] MEDS: LORazepam 2 MG/ML VIAL 1 MG IVP (03:13)
[2020-01-30 08:02] VITALS: BP 160/75; PULSE 68; RESP 20; TEMP 37; O2SAT 94
--- NOTE | 2020-01-30 11:30 | PHA.REVIEW ---
Pharmacy Admission Review - Admission Clinical Review (Last Reviewed 01/29/20 @ 20:40 by ERICA Jordan) Palliative care patient (Acute) Fall (Acute) No Known Allergies Allergy (Unverified 01/28/20 09:44) Height 5 ft 8 in Weight 81.6 kg - Renal Dosing Renal Dosing: BUN 18 mg/dL (7-18) 01/28/20 09:20 Creatinine 0.95 mg/dL (0.70-1.30) 01/28/20 09:20 Medications needing adjustments: Reviewed (Crcl ~63 mL/min current meds okay) - Anticoagulation Anticoagulation: Hgb 14.2 g/dL (13.5-17.5) 01/28/20 09:20 Hct 43.1 % (40.0-50.0) 01/28/20 09:20 Plt Count 214 10^3/uL (130-400) 01/28/20 09:20 INR 1.0 (0.9-1.1) 01/28/20 09:20 Creatinine 0.95 mg/dL (0.70-1.30) 01/28/20 09:20 DVT Prohphylaxis: Reviewed (on hold due to agitation and high fall risk per H&P) Therapeutic Anticoagulation: N/A - Opiate Usage Evaluate Pain Scale/Pains Meds: Reviewed Scheduled Bowel Reg ordered if on Opiates?: No (has PRN med orders) - Relevant Labs Sodium 142 mmol/L (136-145) 01/28/20 09:20 Potassium 3.4 mmol/L (3.5-5.1) L 01/28/20 09:20 Chloride 107 mmol/L (98-107) 01/28/20 09:20 Magnesium 2.3 mg/dL (1.8-2.4) 01/28/20 09:20 Electrolytes, C-Reactive P, ESR: Reviewed - DM Control DM Control: Glucose 122 mg/dL (74-106) H 01/28/20 09:20 Insulin Dosing: Reviewed (none noted on pts medical history) - Heart Failure/WI Heart Failure/WI: Troponin I Cancelled 01/28/20 12:30 EF%, DENI's, B-Blockers, Diuretics: Reviewed - BP Control BP Control: Blood Pressure 160/75 Blood Pressure 165/83 If elevated: Reviewed (BP has been normal to high this admission) - Qtc Review If Elevated: Reviewed (QTc 475 pt has donepezil and quetiapine ordered, provider aware) - IV to PO Switch IV Medications: Reviewed - Home Meds Home Med List reviewed: Reviewed Relevent Home Meds Not ordered & why?: both home meds are ordered - Current meds Current Medication Order Review: Reviewed - Comments Comments/Follow Ups: Continue to watch BP, BG, K+ and for med changes (try to avoid other OT prolonging meds).
--- NOTE | 2020-01-30 12:38 | W.NUTRFU ---
Date of service: 01/30/20 Time of Service: 12:38 Nutritional Follow up NOTE: 79 year old male admitted s/p fall with hx of Dementia. BMI wnl. Following regular meal plan with excellent intake (>75%). BMI wnl. Not at nutritional risk at this time. Will continue to follow. Time Spent in Nutritional Counseling and Treatment: 0 time spent face to face
--- NOTE | 2020-01-30 14:42 | W.PM.PROGNOT ---
Date of Service Date of service: 01/30/20 Time of Service: 14:42 Assessment and Plan Assessment and plan (1) Dementia: Status: Chronic Assessment and plan: sedated today likely from overnight prn medications. continue Morphine for pain, abdominal pain with palpation, could be contusion from fall, no obvious signs of trauma ativan for agitation Qualifiers: Alzheimer's disease onset: early-onset Dementia behavioral disturbance: with behavioral disturbance Dementia type: Alzheimer's disease Qualified Code(s): G30.0 - Alzheimer's disease with early onset; F02.81 - Dementia in other diseases classified elsewhere with behavioral disturbance (2) Palliative care patient: Status: Acute Assessment and plan: DNR/DNI, consult by Dr Soares, see her note. case management following. (3) Fall: Status: Acute Assessment and plan: continue fall precautions. case discussed with Dr Guerrero who is in agreement. Qualifiers: Encounter type: initial encounter Qualified Code(s): W19.XXXA - Unspecified fall, initial encounter Subjective Subjective Interval history since last seen: patient was given morphine overnight for reports of abdominal pain and ativan for restlessness and now has been sedate since. minimal responses to position changes. respirations even and unlabored and appears comfortable with no grimacing. Exam Const General: comfortable and no acute distress Nutritional Appearance: average body habitus Orientation: obtunded (sedate) HENMT Head: normal to inspection Mouth: moist mucous membranes abnormal (dry) Resp Effort & Inspection: normal respiratory effort (even and unlabored) Skin General skin exam: other (pink warm dry and well perfused) Neuro General: patient obtunded (rouses briefly to position changes and care) Objective Last Vital Signs Temp 37.0 C 01/30/20 08:02 Pulse 68 01/30/20 08:02 Resp 20 01/30/20 08:02 BP 160/75 H 01/30/20 08:02 Pulse Ox 94 01/30/20 08:02
--- NOTE | 2020-01-30 14:56 | PDOC.CMPRO ---
- If Service Date Differs Date of service: 01/30/20 Time of Service: 14:56 Care Management Progress Note S/O: Steffen is asleep when CM into visit. His spouse is present and met with Hospice today. Plan will be for her to take him home as soon as possible. He will need new hospice admission. Steffen's equipment need will depend on his ability to engage. He has been sleeping all morning and his spouse would like to determined what he will need once he is awake. She would like to transport him home in her car again we will need to see if he is more alert. Potential equipment includes wheelchair, hospital bed and commode. A: Steffen is a 79 year old male admitted to [facility] on 01/28/20 with Dementia, agitation, fall. P: Steffen will be discharged home in the next 48 hours on Hospice. Transportation and equipment to be determined CM contacted home health to provide update.
--- NOTE | 2020-01-30 15:47 | NT_ITS ---
Date of service: 01/30/20 Time of Service: 15:47 PT Notes Visit Reasons: DEMENTIA, AGITATION, FALL WITH UNRESPONSIVENESS 01/30/2020 Patient on hold for the day, as he is non-rousable by this therapist, nursing staff, or his . Nursing reports this could be due to medication patient re ceived overnight. Will attempt to resume PT tomorrow morning, if appropriate.
[2020-01-30 16:19] VITALS: BP 161/91; PULSE 80; RESP 20; TEMP 37.2; O2SAT 96
[2020-01-30] MEDS: QUEtiapine 25 MG TAB PO (21:15)
[2020-01-30] MEDS: Donepezil 5 MG TAB PO (21:15)
[2020-01-30] MEDS: Memantine 5 MG TAB 10 MG PO (21:15)
[2020-01-30 23:15] VITALS: BP 164/84; PULSE 80; RESP 18; TEMP 36.3; O2SAT 96
[2020-01-31] MEDS: MORPHine 2 MG/ML SYR IVP (05:14)
[2020-01-31 07:52] VITALS: BP 152/91; PULSE 66; RESP 18; TEMP 36.7; O2SAT 95
--- NOTE | 2020-01-31 10:57 | W.PM.PROGNOT ---
Date of Service Date of service: 01/31/20 Time of Service: 10:57 Assessment and Plan Assessment and plan (1) Dementia: Status: Chronic Assessment and plan: more awake today. continue Morphine for pain as needed ativan for agitation Qualifiers: Alzheimer's disease onset: early-onset Dementia behavioral disturbance: with behavioral disturbance Dementia type: Alzheimer's disease Qualified Code(s): G30.0 - Alzheimer's disease with early onset; F02.81 - Dementia in other diseases classified elsewhere with behavioral disturbance (2) Palliative care patient: Status: Acute Assessment and plan: DNR/DNI, consult by Dr Soaers, see her note. case management following. (3) Fall: Status: Acute Assessment and plan: continue fall precautions. case discussed with Dr Guerrero who is in agreement. Qualifiers: Encounter type: initial encounter Qualified Code(s): W19.XXXA - Unspecified fall, initial encounter (4) Dysphagia: Status: Acute Assessment and plan: possibly due to oversedation, continue thickened fluids for now. feed when fully awake and sitting upright. Subjective Subjective Patient reports: feels better Interval history since last seen: required thickening of his PO fluids. no fevers, hemodynamically stable. remains pleasantly confused. up to chair today. no apparent distress Exam Const General: comfortable and no acute distress Nutritional Appearance: average body habitus Orientation: confused HENMT Head: normal to inspection Mouth: moist mucous membranes abnormal (dry) Resp Effort & Inspection: normal respiratory effort (even and unlabored) Skin General skin exam: other (pink warm dry and well perfused) Neuro General: patient alert, moves all extremities and patient confused Cognition: abnormal cognition (severe advanced dementia) Objective Last Vital Signs Temp 36.7 C 01/31/20 07:52 Pulse 66 01/31/20 07:52 Resp 18 01/31/20 07:52 BP 152/91 H 01/31/20 07:52 Pulse Ox 95 01/31/20 07:52
--- NOTE | 2020-01-31 14:17 | PTTR_ITS ---
Date of service: 01/31/20 Time of Service: 14:17 PT Notes Visit Reasons: DEMENTIA, AGITATION, FALL WITH UNRESPONSIVENESS Inpatient Physical Therapy Treatment Note [facility] Date: 01/31/2020 PRECAUTIONS: Fall, dementia SUBJECTIVE: Steffen states that he would like to go for a walk. He states that he is sleepy today. OBJECTIVE: PAIN: No c/o pain BED MOBILITY/TRANSFERS Sit-stand: Min A x2 Stand-sit: Min A x2 GAIT Assistive Device: FRENCH TRANSLATOR x2 Weight bearing: Full Assist: CGA x2 Distance: 80' in a.m.; 200' in p.m. Deviation: Patient falling asleep during gait training in a.m.; confusion requiring cueing for direction in both a.m. and p.m. THEREX: Patient was instructed in several LE strengthening exercises, while seated at EOB, as per flow sheet. He requires max visual cueing, as well as tactile and verbal cueing for participation and proper exercise completion. ASSESSMENT: Patient tolerated session without complaint. He appears limited due to increased fatigue. Due to his baseline confusion, he requires cueing for direction and movement initiation. PLAN: Continue to assess patient's current level of function for discharge planning. TREATMENT CODE/TIME: Session 1: 25 minutes; [id number], [id number] Session 2: 20 minutes; [id number]
[2020-01-31 15:41] VITALS: BP 129/79; PULSE 74; RESP 20; TEMP 37.1; O2SAT 96
--- NOTE | 2020-01-31 16:26 | DSE_ITS ---
Date of service: 01/31/20 Time of Service: 16:26 DS: Diagnosis Discharge Diagnosis (1) Dementia: Status: Chronic (2) Palliative care patient: Status: Acute (3) Fall: Status: Acute (4) Dysphagia: Status: Acute Discharge Plan Disposition Patient Disposition: HOME Condition: Poor Discharge Details Reason For Visit: DEMENTIA, AGITATION, FALL WITH UNRESPONSIVENESS Admit Date/Time: 01/28/20 12:47 Admit Provider: Charlie Guerrero Attending Provider: Charlie Guerrero Primary Care Provider: [facility] Course Hospital Course: D/C with Hospice care. Home Meds and New Rx's Prescriptions: New polyethylene glycol 3350 17 gram Powder In Packet 17 g PO DAILY PRN PRN (Reason: Constipation) Qty: 0 RF: 0 quetiapine 25 mg tablet 25 mg PO QHS Qty: 1 RF: 0 Discontinued donepezil [Aricept] 5 mg Tablet 5 mg PO QHS RF: 0 memantine [Namenda] 10 mg Tablet 10 mg PO QPM RF: 0 Discharge Instructions Activity:: Activity as Tolerated Equipment/Supplies:: No Equipment Needed Diet:: As Tolerated Discharge Orders Discharge Orders: Discharge Order (Routine); Ordered 01/31/20 Ordered By: Charlie Guerrero DS: Summary Status at Discharge Functional status at discharge: bed bound Overall status at discharge: other (discharging under hospice care) Mental Status: other Speech and Movement: other Mood: other Affect: other Exam Psych Mental Status: other Speech and Movement: other Mood: other Affect: other DS: Data Vitals/I&O Vitals and I&O: Vital Signs Temperature 37.1 C 01/31/20 15:41 Temperature Source Tympanic 01/31/20 15:41 Pulse 74 01/31/20 15:41 Pulse Rhythm Regular 01/31/20 13:12 Pulse 121 H 01/28/20 13:30 Respiratory Rate 20 01/31/20 15:41 Respiratory Effort Non-Labored 01/31/20 13:12 Respiratory Depth Normal 01/31/20 13:12 Respiratory Pattern Normal 01/31/20 13:12 Blood Pressure 129/79 01/31/20 15:41 Blood Pressure Mean 109 01/28/20 13:16 Blood Pressure Position Supine 01/28/20 09:17 Pulse Oximetry 96 01/31/20 15:41 Oxygen Delivery Method Room Air 01/31/20 15:41 Oxygen Flow Rate 0 01/31/20 15:41 Pain Level 0 01/31/20 15:41 Comment 01/30/20 00:20 Intake & Output 01/30/20 01/31/20 01/31/20 23:59 11:59 23:59 Intake Total 30 / 30 200 / 440 240 / 440 Output Total 150 / 150 Balance 30 / 30 200 / 290 90 / 290 Intake: IV 30 / 30 Oral 200 / 440 240 / 440 Output: Urine 150 / 150 Other: Urine Color Yellow Yellow Urine Appearance Clear Clear Clear Urine Odor Normal Comment unable to assess; wet brief Voiding Methods Diaper Diaper Urinal PFSH Medical History HTN (hypertension) Hyperlipidemia Social History Smoking/Tobacco Use Status: Former Tobacco Use Smoking risk assessment performed?: Yes Alcohol Intake: never Drug use: Never Substance use type: does not use Do you feel safe at home: Yes Do you feel safe in your relationship?: Yes
--- NOTE | 2020-01-31 19:22 | CMDISCH_ITS ---
- If Service Date Differs Date of service: 01/31/20 Time of Service: 19:22 LACE Index Scoring Tool - Questions: Length of Stay (in days): 4 - 6 Acuity (Admit via E.D.?): Yes Comorbidities: Dementia E.D. Visits: 1 - Answers: Total Score: 11 Risk of Readmission: High Risk Care Management Discharge Reason for Hospitalization: Dementia, agitation, fall Discharge Plan: Steffen will return home today with his , and will be admitted to Hospice at home tomorrow. Hospice will call his in the morning to set up a time to arrive. Pharmacy dispensed medication for one day in order to get them through until Hospice arrives with the medication he will need to be comfortable. Hospice will also coordinate any equipment needs they may have. Adrianna is happy to be taking him home where he is more comfortable. Patient/Family Education Needs: Review discharge instructions regarding medications, discussion of expectations of Hospice. Services Needed at Discharge: Home Health Care Services ([facility])
--- NOTE | 2020-02-05 08:45 | PT.INDS ---
Date of service: 02/05/20 Time of Service: 08:45 PT Notes Visit Reasons: DEMENTIA, AGITATION, FALL WITH UNRESPONSIVENESS Physical Therapy Inpatient Discharge Summary Date: 01/30/2020 Dates of service: 01/29/2020 through 01/23/2020 This is a clinical summary of care provided on the duration of dates listed above. No charge was made in the completion of this documentation. Referring Doctor: Mishel Reyez NP PT Orders: PT CONSULT: Eval/Treat Precautions: Fall. Standard. Activity as tolerated. Impaired safety awareness. Patient Profile/Admitting Diagnosis: Steffen is a 79-year old male with dementia x 10 years who presented to the ED with chief complaints of confusion, agitation, fall. is considering hospice versus palliative care at home. PMHX: Medical History (Updated 01/28/20 @ 14:17 by Mishel Reyez NP) HTN (hypertension) Hyperlipidemia Social History/Home Situation: Lives with in a private home with 4 steps to enter. They have spent katz in [place] and spends the rest of the year here in [place]. Independent with ambulation inside the home without an assistive device. Equipment Owned/DME: No assistive devices Subjective: NT. See most recent [employer] notes. Objective: General Observation: NT. See most recent [employer] notes. Mental Status: NT. See most recent [employer] notes. Pain: NT. See most recent [employer] notes. ROM: Right Upper Extremity: Shoulder Flexion WFL. Shoulder abduction WFL. Elbow flexion WFL. Wrist flexion WFL. Opening and closing of hand WFL. Left Upper Extremity: Shoulder Flexion WFL. Shoulder abduction WFL. Elbow flexion WFL. Wrist flexion WFL. Opening and closing of hand WFL. Right Lower Extremity: Hip flexion WFL. Hip abduction WFL. Knee flexion WFL. Ankle dorsiflexion WFL. Ankle plantarflexion WFL. Left Lower Extremity: Hip flexion WFL. Hip abduction WFL. Knee flexion WFL. Ankle dorsiflexion WFL. Ankle plantarflexion WFL. Strength: Right Upper Extremity: Grossly 4-/5 Left Upper Extremity: Grossly 4-/5 Right Lower Extremity: Grossly 4-/5 Left Lower Extremity:Grossly 4-/5 Bed Mobility/Transfers: Sit to supine minimal assist with HOB at 30 degrees Sit to stand minimal assist of 2 Stand to sit minimal assist of 2 Bed to chair minimal assist of 2 Chair to bed minimal assist of 2 Gait: 200 feet with contact-guard assist of 2 requiring maximal verbal cueing for safety and sequence. Balance: Static Sitting: Normal Dynamic Sitting: Good Static Standing: Poor Dynamic Standing: Poor Assessment: Steffen continues to demonstrate functional mobility decline requiring the help of two people for all mobility ADL performance, generalized weakness, imapired balance, and increased risk for falls due to admitting diagnoses. Steffen is a 79-year old male with dementia x 10 years who presented to the ED with chief complaints of confusion, agitation, fall. is considering hospice versus palliative care at home. Patient continues to present with clinical signs and symptoms consistent with current/admitting diagnoses that have resulted to mobility limitations, gait instability, generalized weakness, and impairment of motor control as demonstrated by the following impairment level findings: 1. Decreased strength to B UE/LE major muscle groups 2. Impaired /standing balance 3. Impaired activity tolerance 4. Impaired safety awareness Impairments are continuing to contribute to the following functional limitations: 1. Dependent bed mobility skills 2. Increased dependence with transfers 3. Inability to safely ambulate without assistive device and physical assistance 4. Increase completion time for mobility ADL performance 5. Increased fall risk 6. Inability to negotiate steps alone safely Goals: Goals X1 week 1. Supine-Sit independent NOT MET 2. Sit-Supine independent NOT MET 3. Sit-Stand SBA NOT MET 4. Stand-Sit SBA NOT MET 5. Bed-Chair SBA NOT MET 6. Chair-Bed SBA NOT MET 7. SBA gait on level surface with use of least restrictive device for at least 300 feet without report of pain nor dyspnea NOT MET 8. SBA stair negotiation while holding onto bilateral rails for at least 10 steps without report of pain nor dyspnea NOT MET 9. Good static and dynamic standing balance/tolerance NOT MET DISCHARGE RECOMMENDATIONS: Patient will benefit from home health PT services in order to progress mobility level using least restrictive assistive ambulatory device, assess home safety, identify additional equipment needs, and establish a functional maintenance program that will increase ability of patient to remain at home. TREATMENT CODE/TIME: MD Thank you for the opportunity to participate in the care of this patient. Tete Montgomery PT, DPT, CLT [facility] [place], [place]
== END 2020-01-31 18:15 | disposition home or self-care (01) | DRG 57 ==
LOC: ER 13:34 → MS 01-29 08:13
PROVIDERS: Admitting Provider Family Medicine; Emergency Provider Physician Assistant; Visit Provider Family Medicine
DX: G30.0 Alzheimer's disease with early onset (principal); Z91.81 History of falling; S40.212A Abrasion of left shoulder, initial encounter; E78.5 Hyperlipidemia, unspecified; I10 Essential (primary) hypertension; Z87.891 Personal history of nicotine dependence; K59.00 Constipation, unspecified; Z66 Do not resuscitate; R55 Syncope and collapse
CPT/HCPCS: 36415; 36416; 74177; 80053; 82550; 82962; 93005; 96361; 96374; 97163; 97530; 99223; 99232; 99233; 99239; 99254; 99285; U0003; 70450; 71260; 72125; 81003; 81015; 83735; 84484; 85025; 85610; 85730; 93010; J2060; J2270; J3490